=== PATIENT | female | born 1995 | race Caucasian/White ===

== ENCOUNTER 2017-07-02 21:43 | Emergency (ER) | payer OTHER ==
[~2017-07-02] VITALS: Ht 154.9 cm; Wt 67.6 kg
[2017-07-02 21:57] VITALS: Ht 154.9 cm; Wt 67.6 kg
[2017-07-02 22:57] VITALS: BP 120/82
== END 2017-07-02 22:57 | disposition home or self-care (01) ==
LOC: ED 21:43
DX: F10.129 Alcohol abuse with intoxication, unspecified (principal)